=== PATIENT | female | born 1965 ===

== ENCOUNTER 2024-04-04 15:55 | Emergency (ER) | payer BC ==
[~2024-04-04] VITALS: Ht 157.5 cm; Wt 79.0 kg
[2024-04-04 20:35] VITALS: BP 151/88; PULSE 82; RESP 20; TEMP 99; O2SAT 96
[2024-04-04] MEDS: SODIUM CHLORIDE 0.9% 2,000 ML IV ONE (21:42)
[2024-04-04] MEDS: DIPHENOXYLATE/ATROP 2.5-0.025 MG TABLET PO ONE (21:42)
[2024-04-04] MEDS: ONDANSETRON HCL 4 MG/2 ML VIAL IVP ONE (21:43)
[2024-04-04] MEDS: KETOROLAC TROMETHAMINE 30 MG/ML VIAL IVP ONE (21:43)
[2024-04-04] MEDS: ACETAMINOPHEN 500 MG TABLET PO ONE (21:43)
[2024-04-04] MEDS ORDERED: DIPH-1130 PO (21:54)
[2024-04-04] MEDS ORDERED: ONDA-104 PO (21:54)
[2024-04-04] MEDS ORDERED: ACET-66 PO (21:54)
[2024-04-04 21:59] LABS: BASOPHILS % (AUTO) 0.5 % (0.0-2.0); EOSINOPHILS % (AUTO) 0.3 % (1.0-6.0); HEMATOCRIT 42.2 % (36-46); HEMOGLOBIN 14.4 g/dL (12.0-16.0); LYMPHOCYTES % (AUTO) 20.4 % (22.0-44.0); MEAN CORPUSCULAR HGB CONC 34.3 G/dL (31.0-37.0); MEAN CORPUSCULAR VOLUME 94 fL (80-100); MONOCYTES # (AUTO) 0.7 K/uL (0.1-1.0); MONOCYTES % (AUTO) 6.7 % (2.0-9.0); NEUTROPHILS # (AUTO) 7.1 K/uL (1.8-7.7); NEUTROPHILS % (AUTO) 72.1 % (40.0-70.0); PLATELET COUNT (AUTO) 287 K/uL (150-450); RED BLOOD CELL COUNT(AUTO) 4.51 MIL/uL (4.00-5.20); RED CELL DISTRIBUTION WIDTH 13.1 % (11.5-14.5); WHITE BLOOD COUNT (AUTO) 9.9 K/uL (4.5-11.0)
[2024-04-04 22:04] LABS: ANION GAP 9 mmol/L (8-16); CALCIUM, TOTAL 9.5 mg/dL (8.8-10.5); CARBON DIOXIDE 28 mmol/L (22-29); CHLORIDE 101 mmol/L (98-107); CREATININE 0.75 mg/dL (0.60-1.30); GLOMERULAR FILTR. RATE CALC > 60 mL/min (>60); GLUCOSE,RANDOM 103 mg/dL (70-110); POTASSIUM 4.3 mmol/L (3.5-5.1); SODIUM SERUM 138 mmol/L (136-145); UREA NITROGEN, BLOOD 11 mg/dL (7-18)
[2024-04-04 22:05] LABS: LIPASE 36 U/L (16-77)
== END 2024-04-05 | disposition home or self-care (01) ==
LOC: EMS 15:55
DX: K52.9 Noninfective gastroenteritis and colitis, unspecified (principal); E03.9 Hypothyroidism, unspecified; Z98.890 Other specified postprocedural states
CPT/HCPCS: 99284; 96374; 96361; 96375; 80048; 83690; 85025; 36415; J1885; J2405; J7030